=== PATIENT | female | born 1955 | race Caucasian/White ===

== ENCOUNTER 2018-07-31 05:29 | Inpatient (IN) | payer OTHER, MEDICARE ==
[~2018-07-31] VITALS: Ht 160 cm; Wt 73.9 kg
[2018-07-31 05:30] VITALS: BP_SYST 87
[2018-07-31] MEDS ORDERED: NACL 0.9% 1,000 ML IV ONE ×2 (06:00→06:30)
[2018-07-31 06:18] LABS: BILIRUBIN,URINE 1+ (NEGATIVE); BLOOD, URINE 3+ (NEGATIVE); CLARITY/URINE HAZY (CLEAR); COLOR,URINE YELLOW (YELLOW); GLUCOSE,URINE NEGATIVE (NEGATIVE); KETONES,URINE NEGATIVE (NEGATIVE); LEUKOCYTE ESTERASE ,URINE 2+ (NEGATIVE); NITRITE, URINE POSITIVE (NEGATIVE); PH,URINE 5.5 (5.0-8.0); PROTEIN URINE 2+ (NEGATIVE)
[2018-07-31 06:30] LABS: BACTERIA,URINE MODERATE /HPF (None Seen); RBC,URINE 20-50 /HPF (0-3); WBC,URINE 20-50 /HPF (0-3)
[2018-07-31] MEDS ORDERED: KETOROLAC TROMETHAMINE 30 MG VIAL IVP ONE (06:30)
[2018-07-31 06:31] LABS: MUCUS,URINE 1+ /LPF (None Seen)
[2018-07-31] MEDS ORDERED: KETOROLAC TROMETHAMINE 30 MG VIAL ONE (06:32)
[2018-07-31 06:33] LABS: CALCIUM 8.5 mg/dL (8.4-11.0); CREATININE 1.34 mg/dL (0.55-1.30); POTASSIUM 3.2 mmol/L (3.5-5.1)
[2018-07-31 06:34] LABS: INR 1.3 (0.8-1.2); PROTHROMBIN TIME 12.5 SECS (9.5-12.5)
[2018-07-31 06:37] LABS: ALBUMIN 2.5 g/dL (3.4-4.8)
[2018-07-31 06:39] LABS: BASOPHILS % (AUTO) 0.4 % (0.0-2.0); EOSINOPHILS % (AUTO) 0.9 % (0.0-4.0); HEMATOCRIT 37.3 % (36-48); HEMOGLOBIN 12.5 g/dL (12.0-16.0); LYMPHOCYTES # (AUTO) 0.3 K/uL (1.0-5.5); LYMPHOCYTES % (AUTO) 5.7 % (20.5-51.5); MEAN CORPUSCULAR HEMOGLOBIN 29 pg (27-31); MEAN CORPUSCULAR HGB CONC 34 % (32-36); MEAN CORPUSCULAR VOLUME 87 fL (79.0-98.0); MONOCYTES # (AUTO) 0.5 K/uL (0.0-1.0); MONOCYTES % (AUTO) 8.9 % (1.7-9.3); NEUTROPHILS # (AUTO) 4.8 K/uL (1.8-7.7); NEUTROPHILS % (AUTO) 84.1 % (40.0-70.0); RED BLOOD CELL COUNT(AUTO) 4.32 MIL/uL (4.2-6.2); RED CELL DISTRIBUTION WIDTH 15.7 % (9.0-15.0); WHITE BLOOD COUNT (AUTO) 5.6 K/uL (4.8-10.8)
[2018-07-31 07:03] LABS: PLATELET COUNT (AUTO) 99 K/uL (130-430)
[2018-07-31] MEDS ORDERED: cefTRIAXone 1 GM IVPB PREMIX 50 ML IV ONE ×2 (07:30→07:33)
[2018-07-31] MEDS ORDERED: D5/0.45 NS 1,000 ML IV ONE (07:30)
[2018-07-31 07:54] VITALS: BP_SYST 112
[2018-07-31] MEDS ORDERED: LORazepam 2 MG/ML VIAL IVP PRN (10:00)
[2018-07-31] MEDS ORDERED: HYDROcodone/ACETAMIN 5-325 MG TAB (NORCO/ VICODIN) PO PRN (10:00)
[2018-07-31] MEDS ORDERED: HYDROcodone/ACETAMIN 10-325 MG TAB PO PRN (10:00)
[2018-07-31 12:43] VITALS: BP_SYST 107
[2018-07-31] MEDS ORDERED: GENTAMICIN 100 mg/50 mL NS 50 ML IV ONE (13:30)
[2018-07-31] MEDS: ONDANSETRON HCL 4 MG/2 ML VIAL IVP PRN (13:36)
[2018-07-31] MEDS: ACETAMINOPHEN 325 MG TABLET PO PRN (16:41)
[2018-07-31 18:52] VITALS: BP_SYST 140
[2018-07-31 19:25] VITALS: BP_SYST 132
[2018-08-01] MEDS: cefTRIAXone 1 GM IVPB PREMIX 50 ML IV SCH (05:17)
[2018-08-01 06:56] LABS: ALBUMIN 1.9 g/dL (3.4-4.8); CALCIUM 7.9 mg/dL (8.4-11.0); CREATININE 1.2 mg/dL (0.55-1.30); PHOSPHORUS 1.3 mg/dL (2.7-4.5); POTASSIUM 3.7 mmol/L (3.5-5.1); TOTAL BILIRUBIN 1.2 mg/dL (0.0-1.0)
[2018-08-01 07:17] LABS: BASOPHILS % (AUTO) 0.8 % (0.0-2.0); EOSINOPHILS % (AUTO) 0.6 % (0.0-4.0); HEMATOCRIT 33.3 % (36-48); HEMOGLOBIN 11.1 g/dL (12.0-16.0); LYMPHOCYTES # (AUTO) 0.5 K/uL (1.0-5.5); LYMPHOCYTES % (AUTO) 14.5 % (20.5-51.5); MEAN CORPUSCULAR HEMOGLOBIN 29 pg (27-31); MEAN CORPUSCULAR HGB CONC 33 % (32-36); MEAN CORPUSCULAR VOLUME 87 fL (79.0-98.0); MONOCYTES # (AUTO) 0.7 K/uL (0.0-1.0); MONOCYTES % (AUTO) 19.6 % (1.7-9.3); NEUTROPHILS # (AUTO) 2.3 K/uL (1.8-7.7); PLATELET COUNT (AUTO) 82 K/uL (130-430); RED BLOOD CELL COUNT(AUTO) 3.85 MIL/uL (4.2-6.2); RED CELL DISTRIBUTION WIDTH 16.1 % (9.0-15.0); WHITE BLOOD COUNT (AUTO) 3.5 K/uL (4.8-10.8)
[2018-08-01 08:00] VITALS: BP_SYST 134
[2018-08-01] MEDS: ONDANSETRON HCL 4 MG/2 ML VIAL IVP PRN (08:00)
[2018-08-01] MEDS: ACETAMINOPHEN 325 MG TABLET PO PRN ×3 (08:00→20:32)
[2018-08-01] MEDS ORDERED: K PHOS 30 MM in NS 250 ML IV ONE (10:45)
[2018-08-01 11:09] LABS: NEUTROPHILS % (AUTO) 64.5 % (40.0-70.0)
[2018-08-01 12:00] VITALS: BP_SYST 129
[2018-08-01 16:00] VITALS: BP_SYST 101
[2018-08-01 20:20] VITALS: BP_SYST 133
[2018-08-02 00:10] VITALS: BP_SYST 105
[2018-08-02] MEDS: cefTRIAXone 1 GM IVPB PREMIX 50 ML IV SCH (05:03)
[2018-08-02 06:41] LABS: HEMATOCRIT 32.6 % (36-48); MEAN CORPUSCULAR HEMOGLOBIN 29 pg (27-31); MEAN CORPUSCULAR HGB CONC 34 % (32-36); MEAN CORPUSCULAR VOLUME 86 fL (79.0-98.0); PLATELET COUNT (AUTO) 93 K/uL (130-430); RED CELL DISTRIBUTION WIDTH 15.6 % (9.0-15.0); WHITE BLOOD COUNT (AUTO) 4.2 K/uL (4.8-10.8)
[2018-08-02 06:59] LABS: CREATININE 1.18 mg/dL (0.55-1.30); POTASSIUM 3.9 mmol/L (3.5-5.1)
[2018-08-02 07:10] LABS: ALBUMIN 2.1 g/dL (3.4-4.8); PHOSPHORUS 2.6 mg/dL (2.7-4.5); TOTAL BILIRUBIN 0.9 mg/dL (0.0-1.0)
[2018-08-02 08:17] VITALS: BP_SYST 120
[2018-08-02 08:24] LABS: C-REACTIVE PROTEIN QUANT 28.5 mg/dL (0-0.5)
[2018-08-02 11:15] LABS: BAND % (MANUAL) 1 % (0-6); BASOPHILS % (MANUAL) 0 % (0-2); EOSINOPHILS % (MANUAL) 0 % (0-7); ERYTHROCYTE SEDIMENTATION RATE 42 MM/HR (0-20); LYMPHOCYTES % (MANUAL) 25 % (20-46); MONOCYTES % (MANUAL) 19 % (0-11)
[2018-08-02 12:01] VITALS: BP_SYST 131
[2018-08-02] MEDS: ACETAMINOPHEN 325 MG TABLET PO PRN (16:00)
[2018-08-02 16:49] VITALS: BP_SYST 120
[2018-08-02] MEDS ORDERED: LEVO250T2 PO (17:26)
[2018-08-02 18:51] VITALS: BP_SYST 118
== END 2018-08-02 19:00 | disposition home or self-care (01) | DRG 871 ==
LOC: SED 05:29 → SMU 07:22
PROVIDERS: ADMIT Preventive Medicine Preventive Medicine/Occupational Environmental Medicine; ATTEND Preventive Medicine Preventive Medicine/Occupational Environmental Medicine
DX: A41.51 Sepsis due to Escherichia coli [E. coli] (principal); E43 Unspecified severe protein-calorie malnutrition; N17.9 Acute kidney failure, unspecified; E87.1 Hypo-osmolality and hyponatremia; D61.818 Other pancytopenia; N13.6 Pyonephrosis; E78.5 Hyperlipidemia, unspecified; E87.6 Hypokalemia; N18.9 Chronic kidney disease, unspecified; B96.20 Unspecified Escherichia coli [E. coli] as the cause of diseases classified elsewhere; B96.89 Other specified bacterial agents as the cause of diseases classified elsewhere; E83.39 Other disorders of phosphorus metabolism; R73.9 Hyperglycemia, unspecified; R74.0 Nonspecific elevation of levels of transaminase and lactic acid dehydrogenase [LDH]; E83.52 Hypercalcemia; E88.09 Other disorders of plasma-protein metabolism, not elsewhere classified; Z16.24 Resistance to multiple antibiotics; Z85.038 Personal history of other malignant neoplasm of large intestine; Z87.440 Personal history of urinary (tract) infections; Z90.49 Acquired absence of other specified parts of digestive tract; Z90.710 Acquired absence of both cervix and uterus; Z92.21 Personal history of antineoplastic chemotherapy
CPT/HCPCS: 36415; 71046-TC; 71250-TC; 74018; 76700-TC; 80053; 81000-TC; 82378; 83605; 83735-TC; 84100-TC; 85007; 85025; 85027; 85610-TC; 85651-TC; 85730-TC; 86140; 87040-TC; 87086; 87186-TC; 96361; 96365; 96375; 99285; J0696; J1580; J1885; J2405; J7050